=== PATIENT | male | born 1960 | race Caucasian/White ===

== ENCOUNTER 2021-05-18 01:52 | Emergency (ER) | payer BC ==
[~2021-05-18] VITALS: Ht 177.8 cm; Wt 86.2 kg
[2021-05-18] MEDS ORDERED: ONDANSETRON HCL INJ 2MG/ML 2ML 2 MG/ML VIAL ONE (02:05)
[2021-05-18] MEDS ORDERED: KETOROLAC TROMETHAMINE 30 MG/ML VIAL ONE (02:05)
[2021-05-18] MEDS ORDERED: SODIUM CHLORIDE 0.9% 1000ML 1,000 ML ONE (02:05)
[2021-05-18] MEDS ORDERED: KETOROLAC TROME10 MG PO (02:54)
[2021-05-18] MEDS ORDERED: FLOMAX0.4 MG PO (02:54)
[2021-05-18] MEDS ORDERED: ONDANSETRON ODT4 MG PO (02:54)
[2021-05-18] MEDS ORDERED: ONDANSETRON HCL INJ 2MG/ML 2ML 2 MG/ML VIAL IV STA (03:05)
[2021-05-18] MEDS ORDERED: KETOROLAC TROMETHAMINE 30 MG/ML VIAL IV STA (03:05)
[2021-05-18] MEDS ORDERED: SODIUM CHLORIDE 0.9% 1000ML 1,000 ML IV ONE (03:15)
== END 2021-05-18 03:31 | disposition home or self-care (01) ==
LOC: FSED 02:10
DX: N20.0 Calculus of kidney (principal); M54.5 Low back pain; R73.9 Hyperglycemia, unspecified; R94.4 Abnormal results of kidney function studies; K57.90 Diverticulosis of intestine, part unspecified, without perforation or abscess without bleeding
CPT/HCPCS: 74176; 80053; 81003; 85025; 99283; J1885; J2405; J7030